=== PATIENT | female | born 1950 | race Asian ===

== ENCOUNTER → 2018-06-03 | Day surgery (SDC) | payer MEDICARE, OTHER ==
[~2018-06-03] VITALS: Ht 156.2 cm; Wt 60.3 kg
[~2018-06-03] MED LIST: APIX5TAB PO; ASCO500C15 PO; ATOR40TA70 PO; ATROPINE SULFATE 0.4MG/ML VIAL IV PRN; BACITRACIN 50,000 UNITS/VIAL ONE; BACITRACIN ZINC 15GM TUBE TOP ONE; BUPIVACAINE HCL/PF 0.5% (5MG/ML) 10ML ONE; CEFAZOLIN SODIUM 1000MG/VIAL ONE; DOCU250C14 PO; DULA0.75 SQ; FENTANYL CITRATE/PF 50MCG/ML 5ML VIAL ONE; GELATIN SPONGE,COMPRESSED SZ 100 ONE; HEPARIN SODIUM 1,000 UNIT/1ML VIAL IV ONE; HYDR-4001 PO; HYDR100T26 PO; HYDROMORPHONE HCL/PF 2MG/ML CPJ IV PRN; INSU100I28 SQ; LIDOCAINE HCL 1% 10 MG/ML 10ML VIAL ONE; MEPERIDINE HCL/PF 25MG/ML CPJ IV PRN; METO-539 PO; METOCLOPRAMIDE HCL 10MG/2ML VIAL IV PRN; METOCLOPRAMIDE HCL 10MG/2ML VIAL ONE; MIDAZOLAM HCL 2 MG/2 ML VIAL ONE; MULT-1116 PO; ONDANSETRON HCL 4MG/2ML INJ IV PRN; ONDANSETRON HCL 4MG/2ML INJ ONE; POLY250017 MT; PROPOFOL 200MG/20ML VIAL IV ONE; ROCURONIUM BROMIDE 10MG/ML VIAL 5ML IV ONE; SENN-170 PO; SODIUM CHLORIDE 0.9% 1,000 ML IV SCH; THROMBIN (BOVINE) 5000 UNITS/VIAL TOP ONE; VALS320T16 PO
[2018-06-03 11:45] LABS: BASOPHILS % 0.9 % (0.0-2.0); EOSINOPHILS % 5.3 % (0.0-5.0); HEMATOCRIT. 31.6 % (36.0-48.0); HEMOGLOBIN. 10.7 g/dL (12.0-16.0); LYMPHOCYTES % 22.3 % (20.0-50.0); MEAN CORPUSCULAR HEMOGLOBIN 28.7 pg (28.0-32.0); MEAN CORPUSCULAR VOLUME 85.2 fL (81.0-99.0); MEAN PLATELET VOLUME 8.3 fl (7.4-10.4); MONOCYTES % 8.7 % (2.0-8.0); NEUTROPHILS % 62.8 % (40.0-76.0); PLATELET 272 x1000/uL (130-400); RED BLOOD CELL COUNT 3.71 mill/uL (4.2-5.4)
[2018-06-03 11:51] LABS: CHLORIDE 103 mEq/L (98-107)
[2018-06-03 11:53] LABS: PARTIAL THROMBOPLASTIN TIME 29.1 sec (23.4-31.0); PROTHROMBIN TIME 10.3 sec (9.1-11.1)
[2018-06-03] MEDS: FENTANYL CITRATE/PF 50MCG/ML 2ML VIAL IV PRN ×2 (15:41→15:56)
[2018-06-03 15:56] VITALS: BP 143/66
== END | disposition home or self-care (01) ==
LOC: OR 05-27 10:10 → ORIP 10:09 → UNDOADMIN 10:09 → OR 10:10 → EDSTATUS 12:30
PROVIDERS: ATTEND Surgery Vascular Surgery
DX: I96 Gangrene, not elsewhere classified (principal); I70.202 Unspecified atherosclerosis of native arteries of extremities, left leg; Z79.899 Other long term (current) drug therapy; Z79.4 Long term (current) use of insulin
CPT/HCPCS: 35571; 36415; 71045; 80048; 82962; 85025; 85610; 85730; 86850; 86900; 86901; 93005; C1768; C1884; J0690; J1644; J2250; J2405; J2765; J3010; J3490; J7030; J2704